=== PATIENT | male | born 1990 | race Caucasian/White ===

== ENCOUNTER 2016-10-19 19:24 | Inpatient (IN) | payer MEDICAID, OTHER ==
[~2016-10-19] VITALS: Ht 172.7 cm; Wt 71.8 kg
[2016-10-19] MEDS ORDERED: SODIUM CHLORIDE FLUSH 10ML SYR IVF ONE (19:30)
[2016-10-19 20:10] LABS: ASPARTATE AMINO TRANSFERASE 20 U/L (15-37); BLOOD UREA NITROGEN 23 mg/dL (7-18)
[2016-10-19 20:16] LABS: IS PT STATUS REG ER OR PRE ER? YES
[2016-10-19] MEDS ORDERED: BISACODYL 10 MG SUPP PR PRN (21:00)
[2016-10-19] MEDS: HEPARIN 5,000 UNITS/ML, 1ML SQ SCH ×2 (21:00→22:47)
[2016-10-19] MEDS ORDERED: HALOPERIDOL 5 MG/ML IVPush PRN (21:00)
[2016-10-19] MEDS ORDERED: ONDANSETRON ODT 4 MG PO PRN (21:00)
[2016-10-19] MEDS ORDERED: LABETALOL 5MG/ML, 20ML IVPush PRN (21:00)
[2016-10-19] MEDS ORDERED: DOCUSATE 100 MG CAPSULE PO PRN (21:00)
[2016-10-19] MEDS ORDERED: POLYETHYLENE GLYCOL 17 GM PACKET PO PRN (21:00)
[2016-10-19] MEDS ORDERED: ACETAMINOPHEN 325 MG TABLET PO PRN (21:00)
[2016-10-19] MEDS: SODIUM CHLORIDE 0.9% 1,000 ML IV SCH (22:47)
[2016-10-19] MEDS: NICOTINE 14MG/24 HR PATCH.TD24 TD SCH (22:47)
[2016-10-20 01:58] VITALS: BP 111/52
[2016-10-20] MEDS: SODIUM CHLORIDE 0.9% 1,000 ML IV SCH ×4 (04:03→21:09)
[2016-10-20] MEDS: HEPARIN 5,000 UNITS/ML, 1ML SQ SCH ×3 (05:00→21:00)
[2016-10-20 05:13] LABS: BLOOD UREA NITROGEN 21 mg/dL (7-18)
[2016-10-20 05:22] LABS: HIV 1&2 ANTIBODY SCREEN Nonreactive (Nonreactive); HIV-1 p24 ANTIGEN Nonreactive (Nonreactive)
[2016-10-20 05:24] LABS: ASPARTATE AMINO TRANSFERASE 17 U/L (15-37)
[2016-10-20 09:26] VITALS: BP 120/51
[2016-10-20 10:27] LABS: HEPATITIS C VIRUS ANTIBODY Nonreactive (Nonreactive)
[2016-10-20 12:51] VITALS: BP 120/70
[2016-10-20 14:50] LABS: DAU SCREEN DISCLAIMER
[2016-10-20] MEDS ORDERED: ZIPRASIDONE 20MG CAPSULE PO PRN ×2 (17:00→19:00)
[2016-10-20 20:00] VITALS: BP 104/56
[2016-10-20] MEDS: NICOTINE 14MG/24 HR PATCH.TD24 TD SCH (21:00)
[2016-10-21] MEDS: SODIUM CHLORIDE 0.9% 1,000 ML IV SCH ×2 (01:09→07:23)
[2016-10-21] MEDS: HEPARIN 5,000 UNITS/ML, 1ML SQ SCH ×3 (04:42→20:31)
[2016-10-21 04:49] VITALS: BP 102/55
[2016-10-21 07:44] VITALS: BP 107/64
[2016-10-21 09:01] LABS: ASPARTATE AMINO TRANSFERASE 13 U/L (15-37); BLOOD UREA NITROGEN 16 mg/dL (7-18)
[2016-10-21 13:59] VITALS: BP 111/65
[2016-10-21 19:56] VITALS: BP 117/75
[2016-10-21] MEDS: NICOTINE 14MG/24 HR PATCH.TD24 TD SCH (20:31)
[2016-10-22] MEDS: HEPARIN 5,000 UNITS/ML, 1ML SQ SCH ×2 (05:24→13:00)
[2016-10-22 07:40] VITALS: BP 109/70
== END 2016-10-22 18:41 | disposition home or self-care (01) | DRG 682 ==
LOC: ED 19:37 → 4NOR 20:16 → EDUNIT# 20:16 → EDBD 20:16 → 3E 10-21 12:45
PROVIDERS: ADMIT Internal Medicine; ATTEND Internal Medicine
DX: N17.9 Acute kidney failure, unspecified (principal); G93.40 Encephalopathy, unspecified; R65.10 Systemic inflammatory response syndrome (SIRS) of non-infectious origin without acute organ dysfunction; J93.9 Pneumothorax, unspecified; F15.150 Other stimulant abuse with stimulant-induced psychotic disorder with delusions; M62.82 Rhabdomyolysis; Z78.1 Physical restraint status; N28.9 Disorder of kidney and ureter, unspecified; F17.200 Nicotine dependence, unspecified, uncomplicated; Z83.3 Family history of diabetes mellitus; Z80.0 Family history of malignant neoplasm of digestive organs; J98.2 Interstitial emphysema; F31.9 Bipolar disorder, unspecified; R79.89 Other specified abnormal findings of blood chemistry; F19.10 Other psychoactive substance abuse, uncomplicated; F15.10 Other stimulant abuse, uncomplicated
CPT/HCPCS: 36415; 70490; 71010; 71250; 80053; 80074; 80307; 81001; 82010; 82140; 82550; 83605; 83690; 83735; 83880; 84439; 84443; 84484; 85025; 85610; 86703; 87899; 93005; J1644; G0435; J7030

== ENCOUNTER 2016-11-10 15:10 | Emergency (ER) | payer OTHER, MEDICAID ==
[~2016-11-10] VITALS: Ht 177.8 cm; Wt 70.0 kg
[2016-11-10 15:26] VITALS: BP 112/63
== END 2016-11-10 16:26 | disposition home or self-care (01) ==
LOC: ED 16:00
DX: S06.9X9A Unspecified intracranial injury with loss of consciousness of unspecified duration, initial encounter (principal); S16.1XXA Strain of muscle, fascia and tendon at neck level, initial encounter; V89.2XXA Person injured in unspecified motor-vehicle accident, traffic, initial encounter; Y93.89 Activity, other specified; Y99.8 Other external cause status; Y92.89 Other specified places as the place of occurrence of the external cause
CPT/HCPCS: 70450; 72125